=== PATIENT | male | born 1960 | race Caucasian/White ===

== ENCOUNTER 2021-06-15 12:18 | Emergency (ER) | payer OTHER, BC ==
[2021-06-15] MEDS ORDERED: Ibuprofen 600 MG Tab PO ONE (13:07)
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
== END 2021-06-15 14:28 | disposition home or self-care (01) ==
LOC: MW.ED 12:18
DX: S20.219A Contusion of unspecified front wall of thorax, initial encounter (principal); V59.40XA Driver of pick-up truck or van injured in collision with unspecified motor vehicles in traffic accident, initial encounter
CPT/HCPCS: 71046; 71120; 99284; A9270